=== PATIENT | female | born 2000 | race Two or more races ===

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

== ENCOUNTER 2020-08-20 07:00 | Outpatient (CLI) | payer OTHER | END 2020-08-20 23:59 | disposition home or self-care (01) | LOC: LAB.R 07:00 | PROVIDERS: ATTEND Family Medicine | DX: J06.9 Acute upper respiratory infection, unspecified (principal); Z20.828 Contact with and (suspected) exposure to other viral communicable diseases ==

== ENCOUNTER 2020-09-23 14:02 | Emergency (ER) | payer OTHER ==
--- NOTE | 2020-09-23 14:34 | ED Physician Documentation ---
PD HPI CHEST PAIN - Stated complaint Stated Complaint: CHEST PX - Chief complaint Chief Complaint: Cardiac - History obtained from History obtained from: Patient - History of Present Illness Timing - onset: How many weeks ago (1 week of some chest pain with breathing and movement, worse today. Has had dyspnea with activity for the past month, slowly improving. She was diagnosed with Covid a month ago and has been without symptoms for 3 weeks of active fever cough. However still with some dyspnea on exertion and right CP.) Timing - onset during: Light activity Timing - duration: Days, Weeks Timing - details: Gradual onset, Waxing and waning Quality: Aching, Sharp. No: Pressure, Tightness Location: Right chest Radiation: No: Jaw, Neck, Back Associated symptoms: Shortness of air. No: Diaphoresis, Nausea, Feeling faint / dizzy, General Weakness Similar symptoms before: Has not had sx before Recently seen: Not recently seen Review of Systems Constitutional: denies: Fever, Chills Nose: denies: Rhinorrhea / runny nose, Congestion Throat: denies: Sore throat Cardiac: reports: Chest pain / pressure. denies: Palpitations Respiratory: reports: Dyspnea. denies: Cough, Wheezing GI: denies: Nausea, Vomiting, Diarrhea PD PAST MEDICAL HISTORY - Past Medical History Past Medical History: No Cardiovascular: None Respiratory: None Psych: Depression - Past Surgical History Past Surgical History: No - Present Medications Home Medications: Ambulatory Orders Medication Instructions Recorded Confirmed Albuterol Sulf [Ventolin Hfa 2 puffs INH Q4HR PRN #1 inhaler 09/23/20 Inhaler] dexAMETHasone [Decadron] 4 mg PO DAILY #7 tablet 09/23/20 - Allergies Allergies/Adverse Reactions: Allergies Allergy/AdvReac Type Severity Reaction Status Date / Time shellfish derived Allergy Emesis Verified 09/23/20 14:05 - Social History Does the pt smoke?: No Smoking Status: Never smoker Does the pt drink ETOH?: No Does the pt have substance abuse?: No - Immunizations Immunizations are current?: Yes PD ED PE NORMAL - Vitals Vital signs reviewed: Yes - General General: Alert and oriented X 3, No acute distress, Well developed/nourished - HEENT HEENT: Ears normal, Pharynx benign - Neck Neck: Supple, no meningeal sign, No adenopathy - Cardiac Cardiac: RRR, No murmur - Respiratory Respiratory: Clear bilaterally, Other (Focal right parasternal chest wall tenderness at the cartilage. No rash or sores.) - Abdomen Abdomen: Soft, Non tender - Derm Derm: Normal color, Warm and dry, No rash - Extremities Extremities: No deformity, No tenderness to palpate, Normal ROM s pain, No calf tenderness / cord - Neuro Neuro: Alert and oriented X 3, No motor deficit, Normal speech Results - Vitals Vitals: Vital Signs - 24 hr 09/23/20 09/23/20 09/23/20 14:05 15:15 15:19 Temperature 36.7 C Heart Rate 67 58 L 80 Respiratory 16 17 16 Rate Blood Pressure 129/72 120/88 H O2 Saturation 100 100 Oxygen O2 Source Room air - EKG (time done) 14:08 Rate: Rate (enter#) (73) Rhythm: NSR [place]: Normal Intervals: Normal [place] QRS: Normal Ischemia: Normal ST segments. No: ST elevation c/w ischemia, ST depression - Rads (name of study) chest xray Radiology: Prelim report reviewed (no acute process), See rad report PD MEDICAL DECISION MAKING - ED course Complexity details: reviewed results (chext xray without pneumonia, PTX nor enlarged heart. ), considered differential, d/w patient Departure - Departure Disposition: 01 Home, Self Care Clinical Impression: Chest wall tenderness, Post viral RAD (reactive airway disease) Condition: Stable Record reviewed to determine appropriate education?: Yes Instructions: ED Chest Pain Costochondritis Follow-Up: Leanna Whitney PA-C [Primary Care Provider] - Prescriptions: Albuterol Sulf [Ventolin Hfa Inhaler] 2 puffs INH Q4HR PRN #1 inhaler PRN Reason: Shortness Of Air/Wheezing dexAMETHasone [Decadron] 4 mg PO DAILY #7 tablet Comments: Your chest x-ray and EKG appear normal. No signs of pneumonia or heart enlargement or inflammation. I presume you have inflammation around the lung and in the chest wall causing your pain and also some inflammation in the airways causing the fatigue and trouble breathing. Use the albuterol inhaler 2 puffs 4 times a day for the next week or so and then as needed. Also Decadron steroid daily for a week. To this add ibuprofen or naproxen if needed for pains. I would anticipate improvement over the next several days and resolved within a week regarding the main pain and much of the shortness of breath. Fatigue may last for a few more weeks. Forms: Activity restrictions
[2020-09-23] MEDS ORDERED: DEXAMETHASONE 10 MG/ML VIAL PO STA (14:56)
[2020-09-23] MEDS ORDERED: CHERRY SYRUP 10 ML UDC PO ONE (14:56)
[2020-09-23] MEDS ORDERED: IBUPROFEN 400 MG TABLET PO STA (14:56)
[2020-09-23] MEDS ORDERED: ALBUTEROL 1 PUFF INH STA (14:57)
[2020-09-23 15:16] VITALS: BP 120/88
--- NOTE | 2020-09-23 15:22 | XRAY Report ---
PROCEDURE: Chest 2 View X-Ray INDICATIONS: chest pain/dyspnea, post COVID TECHNIQUE: 2 view(s) of the chest. COMPARISON: None. FINDINGS: Surgical changes and devices: None. Lungs and pleura: No pleural effusions or pneumothorax. Lungs are clear. Mediastinum: Mediastinal contours are normal. Heart size is normal. Bones and chest wall: No suspicious bony abnormalities. Soft tissues appear unremarkable. IMPRESSION: No acute cardiopulmonary disease. Reviewed by: Pastora Ryan MD on 09/23/2020 3:20 PM PST Approved by: Pastora Ryan MD on 09/23/2020 3:20 PM PST Station ID: [id number]
== END 2020-09-23 15:57 | disposition home or self-care (01) ==
LOC: ED 14:02
DX: J45.998 Other asthma (principal); Z86.19 Personal history of other infectious and parasitic diseases; R07.89 Other chest pain
CPT/HCPCS: 71046; 93005; 94640; 99283; 99284; A9270

== ENCOUNTER 2022-01-07 10:51 | Emergency (ER) | payer MEDICAID, OTHER ==
[2022-01-07] MEDS ORDERED: DEXAMETHASONE 10 MG/ML VIAL IVP STA (11:23)
[2022-01-07] MEDS ORDERED: SODIUM CHLORIDE 0.9% 1,000 ML IV STA (11:23)
[2022-01-07] MEDS ORDERED: ONDANSETRON 4 MG/2 ML VIAL IVP STA (11:23)
--- NOTE | 2022-01-07 11:35 | ED Physician Documentation ---
History of Present Illness - Stated complaint Stated Complaint: FEVER - Chief complaint Chief Complaint: Fever - History obtained from History obtained from: Patient, Family - Additonal information Additional information: The patient comes to the emergency department with chief complaint of fever and sore throat for the last 3 days. The patient states that her temperatures have gotten as high as 103 at home. Her symptoms initially started with body aches and then progressed to fevers and chills, with vomiting yesterday. She states her tonsils feel enlarged and cause her to gag. She has not been able to drink much in the way of fluids because of the nausea and vomiting. No diarrhea. Patient states that she has had tonsillitis several times this year, but prior to this year, she did not have an issue with this. She states that she has not seen ENT for this. No difficulty breathing. No dysuria. No abdominal pain. The patient is vaccinated for COVID but not flu. She has not had any sick contacts that she knows of. She denies any other complaints at this time. Review of Systems Ten Systems: 10 systems reviewed and negative Constitutional: reports: Fever, Chills, Myalgias Eyes: reports: Reviewed and negative Ears: reports: Reviewed and negative Nose: reports: Reviewed and negative Throat: reports: Sore throat, Swollen tonsils Cardiac: reports: Reviewed and negative Respiratory: reports: Reviewed and negative. denies: Dyspnea, Cough GI: reports: Nausea, Vomiting. 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 : None HEENT: None Psych: Depression Musculoskeletal: None Derm: None Other Past Medical History: dextrocardia - Past Surgical History Past Surgical History: No - Present Medications Home Medications: Ambulatory Orders Medication Instructions Recorded Confirmed Amoxicillin 500 mg PO TID 7 Days #21 cap 01/07/22 Ondansetron Odt [Zofran] 4 mg TL Q6H PRN #10 tablet 01/07/22 predniSONE [Deltasone] 60 mg PO DAILY 3 Days #9 tablet 01/07/22 - Allergies Allergies/Adverse Reactions: Allergies Allergy/AdvReac Type Severity Reaction Status Date / Time shellfish derived Allergy Emesis Verified 01/07/22 10:53 - Social History Does the pt smoke?: No Smoking Status: Never smoker Does the pt drink ETOH?: No Does the pt have substance abuse?: No - Immunizations Immunizations are current?: Yes PD ED PE NORMAL - Vitals Vital signs reviewed: Yes - General General: Alert and oriented X 3, No acute distress, Well developed/nourished, Other (The patient appears somewhat ill but nontoxic) - HEENT HEENT: Atraumatic, PERRL, EOMI, Moist mucous membranes, Other - Cardiac Cardiac: RRR, No murmur - Respiratory Respiratory: Clear bilaterally - Abdomen Abdomen: Normal bowel sounds, Soft, Non tender, Non distended - Derm Derm: Warm and dry - Extremities Extremities: No deformity - Neuro Neuro: Alert and oriented X 3 - Psych Psych: Normal mood, Normal affect Results - Vitals Vitals: Vital Signs - 24 hr 01/07/22 01/07/22 01/07/22 10:54 11:11 13:16 Temperature 37.3 C 36.5 C Heart Rate 113 H 110 H 100 Respiratory 20 18 16 Rate Blood Pressure 118/73 111/79 108/67 O2 Saturation 99 100 98 Oxygen O2 Source Room air - Labs Labs: Laboratory Tests 01/07/22 01/07/22 01/07/22 11:20 11:20 11:34 Nasal Adenovirus (PCR) NOT DETECTED Nasal B. parapertussis DNA (PCR) NOT DETECTED Nasal Coronavir 229E PCR NOT DETECTED Nasal Coronavir HKU1 PCR NOT DETECTED Nasal Coronavir NL63 PCR NOT DETECTED Nasal Coronavir OC43 PCR NOT DETECTED Nasal Enterovir/Rhinovir PCR NOT DETECTED Nasal Influenza B PCR NOT DETECTED Nasal Influenza A PCR NOT DETECTED Nasal Parainfluen 1 PCR NOT DETECTED Nasal Parainfluen 2 PCR NOT DETECTED Nasal Parainfluen 3 PCR NOT DETECTED Nasal Parainfluen 4 PCR NOT DETECTED Nasal RSV (PCR) NOT DETECTED Nasal B.pertussis DNA PCR NOT DETECTED Nasal C.pneumoniae (PCR) NOT DETECTED [place]us Human Metapneumo PCR NOT DETECTED Nasal M.pneumoniae (PCR) NOT DETECTED Nasal SARS-CoV-2 (PCR) NOT DETECTED Infectious [place] Assay NEGATIVE Group A Strep Rapid Negative PD MEDICAL DECISION MAKING - ED course Complexity details: reviewed results, re-evaluated patient, considered differential, d/w patient ED course: The patient appeared to not feel well but was nontoxic. She was treated symptomatically with IV fluids, Zofran, and Decadron. She was worked up with strep test, mono test, and a respiratory PCR, all of which were negative. The patient clinically had an exudative pharyngitis/tonsillitis, as well as being significantly febrile. She was started on amoxicillin and was advised regarding symptomatic management at home. We have discussed the usual indications for return. Departure - Departure Disposition: Home, Self Care Clinical Impression: Acute tonsillitis Qualifiers: Pharyngitis/tonsillitis etiology: unspecified etiology Qualified Code(s): J03.90 - Acute tonsillitis, unspecified Condition: Stable Instructions: ED Tonsillitis Prescriptions: Amoxicillin 500 mg PO TID 7 Days #21 cap predniSONE [Deltasone] 60 mg PO DAILY 3 Days #9 tablet Ondansetron Odt [Zofran] 4 mg TL Q6H PRN #10 tablet PRN Reason: Nausea / Vomiting Comments: Your strep test is negative, as are your other tests for mono and a variety of other viruses. Most likely, you have a tonsillitis caused by other bacteria. As such, you have been started on antibiotics. You will need to follow-up with the ear nose throat specialist to determine whether your tonsils should be removed, or to see what else can be done to prevent the recurrent episodes. Please take the antibiotics as directed. Please take Tylenol 650 mg every 4 hours as needed for fever and ibuprofen 600 mg every 6 hours as needed for fever. These medications may be taken together, as they are unrelated. Discharge Date/Time: 01/07/22 13:16
[2022-01-07 11:47] LABS: INFECTIOUS MONONUCLEOSIS NEGATIVE (Negative)
[2022-01-07 12:00] LABS: RAPID STREP SCREEN Negative (Negative)
[2022-01-07 12:20] LABS: B. PARAPERTUSSIS- RESP PCR PAN NOT DETECTED; B. PERTUSSIS- RESP PCR PANEL NOT DETECTED; C. PNEUMONIAE- RESP PCR PANEL NOT DETECTED; CORONAVIRUS 229E-RESP PCR NOT DETECTED; CORONAVIRUS HKU1-RESP PCR NOT DETECTED; CORONAVIRUS NL63-RESP PCR NOT DETECTED; CORONAVIRUS OC43-RESP PCR NOT DETECTED; HUMAN METAPNEUMOVIRUS NOT DETECTED; INFLUENZA A- RESP PCR PANEL NOT DETECTED; INFLUENZA B - RESP PCR PANEL NOT DETECTED; M. PNEUMONIAE- RESP PCR PANEL NOT DETECTED; PARAINFLUENZA VIRUS 1 NOT DETECTED; PARAINFLUENZA VIRUS 2 NOT DETECTED; PARAINFLUENZA VIRUS 3 NOT DETECTED; PARAINFLUENZA VIRUS 4 NOT DETECTED; RHINOVIRUS/ENTEROVIRUS NOT DETECTED; RSV- RESP PCR PANEL NOT DETECTED; SARS-CoV-2 -RESP PCR PANEL NOT DETECTED
[2022-01-07] MEDS ORDERED: AMOXICILLIN 250 MG CAPSULE PO STA (12:25)
[2022-01-07] MEDS ORDERED: ACETAMINOPHEN 325 MG TABLET PO STA (12:34)
[2022-01-07] MEDS ORDERED: IBUPROFEN 600 MG TABLET PO STA (12:34)
[2022-01-07 13:17] VITALS: BP 108/67
== END 2022-01-07 13:16 | disposition home or self-care (01) ==
LOC: ED 10:51
DX: J03.90 Acute tonsillitis, unspecified (principal); Z20.822 Contact with and (suspected) exposure to COVID-19
CPT/HCPCS: 36415; 86308; 87070; 87430; 87633; 96374; 99282; 99283; A9270

== ENCOUNTER 2022-07-13 08:00 | Outpatient (CLI) | payer MEDICAID ==
[2022-07-13 17:02] LABS: BASOPHILS % (AUTO) 0.5 %; EOSINOPHILS # (AUTO) 0.2 10^3/uL (0.0-0.7); HCT - HEMATOCRIT 40.2 % (37.0-47.0); HGB - HEMOGLOBIN 13.3 g/dL (12.0-16.0); LYMPHOCYTES # (AUTO) 1.6 10^3/uL (1.5-3.5); LYMPHOCYTES % (AUTO) 20.8 %; MEAN CORPUSCULAR HGB CONC 33.1 g/dL (32.0-36.0); MEAN CORPUSCULAR VOLUME 87.6 fL (81.0-99.0); MEAN PLATELET VOLUME 9.7 fL (7.9-10.8); MONOCYTES # (AUTO) 0.8 10^3/uL (0.0-1.0); NEUTROPHILS # (AUTO) 5.1 10^3/uL (1.5-6.6); NEUTROPHILS % (AUTO) 65.6 %; PLT - PLATELET COUNT 194 10^3/uL (130-450); RED BLOOD COUNT 4.59 10^6/uL (4.20-5.40); WHITE BLOOD COUNT 7.7 x10^3/uL (4.8-10.8)
[2022-07-13 17:50] LABS: ALBUMIN 4.4 g/dL (3.2-5.5); ALBUMIN/GLOBULIN RATIO 1.5 (1.0-2.2); ALKALINE PHOSPHATASE 47 IU/L (42-121); ALT ALANINE AMINOTRANSFERASE 12 IU/L (10-60); AST ASPARTATE AMINOTRANSFERASE 14 IU/L (10-42); BILIRUBIN,TOTAL 0.7 mg/dL (0.2-1.0); BUN - BLOOD UREA NITROGEN 10 mg/dL (6-20); CALCIUM 9.1 mg/dL (8.5-10.3); CARBON DIOXIDE - CO2 27 mmol/L (21-32); CHLORIDE 102 mmol/L (101-111); CHOL/HDL RATIO 2.7 (<4.4); CHOLESTEROL 144 mg/dL; CREATININE 0.8 mg/dL (0.4-1.0); GFR - MDRD 90 (>89); GLUCOSE 101 mg/dL (70-100); HDL CHOLESTEROL 53 mg/dL; LDL CHOLESTEROL,CALCULATED 80 mg/dL; LDL/HDL RATIO 1.5 (<4.4); POTASSIUM 4.1 mmol/L (3.5-5.0); SODIUM 137 mmol/L (135-145); TOTAL PROTEIN 7.4 g/dL (6.7-8.2); TRIGLYCERIDES 55 mg/dL; VLDL CHOLESTEROL 11 mg/dL
== END 2022-07-13 23:59 | disposition home or self-care (01) ==
LOC: LAB 08:00
PROVIDERS: ATTEND Nurse Practitioner
DX: L70.0 Acne vulgaris (principal); Z79.899 Other long term (current) drug therapy
CPT/HCPCS: 36415; 80053; 80061; 83721; 84702; 85025

== ENCOUNTER 2022-08-13 16:47 | Outpatient (CLI) | payer MEDICAID ==
[2022-08-13 16:58] LABS: HCG UR QUAL NEGATIVE
== END 2022-08-13 16:48 | disposition home or self-care (01) ==
LOC: LAB 16:47
PROVIDERS: ATTEND Nurse Practitioner
DX: L70.0 Acne vulgaris (principal)
CPT/HCPCS: 81025

== ENCOUNTER 2022-08-16 16:42 | Outpatient (CLI) | payer MEDICAID ==
[2022-08-16 17:27] LABS: HCG UR QUAL NEGATIVE
== END 2022-08-16 16:43 | disposition home or self-care (01) ==
LOC: LAB 16:42
PROVIDERS: ATTEND Nurse Practitioner
DX: L70.0 Acne vulgaris (principal)
CPT/HCPCS: 81025

== ENCOUNTER 2022-10-11 16:54 | Outpatient (CLI) | payer MEDICAID ==
[2022-10-11 17:34] LABS: HCG UR QUAL NEGATIVE
== END 2022-10-11 16:55 | disposition home or self-care (01) ==
LOC: LAB 16:54
PROVIDERS: ATTEND Nurse Practitioner
DX: L70.0 Acne vulgaris (principal); Z79.899 Other long term (current) drug therapy
CPT/HCPCS: 81025

== ENCOUNTER 2022-11-08 16:48 | Outpatient (CLI) | payer BC, MEDICAID ==
[2022-11-08 17:45] LABS: HCG UR QUAL NEGATIVE
== END 2022-11-08 16:49 | disposition home or self-care (01) ==
LOC: LAB 16:48
PROVIDERS: ATTEND Nurse Practitioner
DX: Z79.899 Other long term (current) drug therapy (principal)
CPT/HCPCS: 81025

== ENCOUNTER 2022-12-14 16:38 | Outpatient (CLI) | payer BC, MEDICAID ==
[2022-12-14 16:58] LABS: HCG UR QUAL NEGATIVE
== END 2022-12-14 16:39 | disposition home or self-care (01) ==
LOC: LAB 16:38
PROVIDERS: ATTEND Nurse Practitioner
DX: Z79.899 Other long term (current) drug therapy (principal)
CPT/HCPCS: 81025

== ENCOUNTER 2022-12-21 16:41 | Outpatient (CLI) | payer BC, MEDICAID | END 2022-12-21 16:42 | disposition home or self-care (01) | LOC: LAB 16:41 | PROVIDERS: ATTEND Nurse Practitioner | DX: Z79.899 Other long term (current) drug therapy (principal) | CPT/HCPCS: 36415; 84702 ==

== ENCOUNTER 2023-01-17 16:49 | Outpatient (CLI) | payer BC, MEDICAID ==
[2023-01-17 17:24] LABS: HCG UR QUAL NEGATIVE
== END 2023-01-17 16:50 | disposition home or self-care (01) ==
LOC: LAB 16:49
PROVIDERS: ATTEND Nurse Practitioner
DX: Z79.899 Other long term (current) drug therapy (principal)
CPT/HCPCS: 81025

== ENCOUNTER 2023-02-02 07:49 | Outpatient (CLI) | payer BC, MEDICAID ==
[2023-02-02 08:02] LABS: BASOPHILS # (AUTO) 0.1 10^3/uL (0.0-0.1); BASOPHILS % (AUTO) 0.9 %; EOSINOPHILS # (AUTO) 0.3 10^3/uL (0.0-0.7); EOSINOPHILS % (AUTO) 4.8 %; HCT - HEMATOCRIT 39.6 % (37.0-47.0); HGB - HEMOGLOBIN 13.5 g/dL (12.0-16.0); LYMPHOCYTES # (AUTO) 1.6 10^3/uL (1.5-3.5); LYMPHOCYTES % (AUTO) 28.2 %; MEAN CORPUSCULAR HEMOGLOBIN 29.5 pg (27.0-31.0); MEAN CORPUSCULAR HGB CONC 34.1 g/dL (32.0-36.0); MEAN CORPUSCULAR VOLUME 86.5 fL (81.0-99.0); MEAN PLATELET VOLUME 9.7 fL (7.9-10.8); MONOCYTES # (AUTO) 0.5 10^3/uL (0.0-1.0); MONOCYTES % (AUTO) 8.5 %; NEUTROPHILS # (AUTO) 3.2 10^3/uL (1.5-6.6); NEUTROPHILS % (AUTO) 57.4 %; PLT - PLATELET COUNT 211 10^3/uL (130-450); RED BLOOD COUNT 4.58 10^6/uL (4.20-5.40); RED CELL DISTRIBUTION WIDTH 11.8 % (12.0-15.0); WHITE BLOOD COUNT 5.6 x10^3/uL (4.8-10.8)
[2023-02-02 08:13] LABS: ALBUMIN 4.1 g/dL (3.2-5.5); ALBUMIN/GLOBULIN RATIO 1.3 (1.0-2.2); BILIRUBIN,TOTAL 0.5 mg/dL (0.2-1.0); CREATININE 0.6 mg/dL (0.4-1.0); POTASSIUM 3.7 mmol/L (3.5-5.0); TOTAL PROTEIN 7.3 g/dL (6.7-8.2)
[2023-02-02 08:31] LABS: THYROID STIMULATING HORMONE 3.88 uIU/mL (0.34-5.60)
[2023-02-02 09:55] LABS: RHEUMATOID FACTOR NEGATIVE (Negative)
[2023-02-03 08:10] LABS: HIV SCREEN 4TH GENERATION Non Reactive (Non Reactive)
--- NOTE | 2023-02-03 12:11 | XRAY Report ---
PROCEDURE: Chest 2 View X-Ray INDICATIONS: FEVER TECHNIQUE: 2 views of the chest were acquired. COMPARISON: 09/23/2020 FINDINGS: Surgical changes and devices: None. Lungs and pleura: No pleural effusions or pneumothorax. Lungs are clear. Mediastinum: Mediastinal contours appear normal. Heart size is normal. Bones and chest wall: No suspicious bony lesions. Overlying soft tissues appear unremarkable. IMPRESSION: No acute cardiopulmonary process. Reviewed by: Ian Jackson MD on 02/03/2023 12:09 PM PDT Approved by: Ian Jackson MD on 02/03/2023 12:09 PM PDT Station ID: [id number]
[2023-02-04 18:07] LABS: ANTINUCLEAR ANTIBODIES IFA Negative (.)
== END 2023-02-02 07:50 | disposition home or self-care (01) ==
LOC: LAB 07:49
PROVIDERS: ATTEND Physician Assistant
DX: R50.9 Fever, unspecified (principal)
CPT/HCPCS: 36415; 80053; 84443; 85025; 85651; 86038; 86430; 87389

== ENCOUNTER 2023-02-16 16:41 | Outpatient (CLI) | payer BC, MEDICAID ==
[2023-02-16 17:44] LABS: HCG UR QUAL NEGATIVE
== END 2023-02-16 16:42 | disposition home or self-care (01) ==
LOC: LAB 16:41
PROVIDERS: ATTEND Nurse Practitioner
DX: Z79.899 Other long term (current) drug therapy (principal)
CPT/HCPCS: 81025

== ENCOUNTER 2023-03-21 16:44 | Outpatient (CLI) | payer BC, MEDICAID ==
[2023-03-21 17:09] LABS: HCG UR QUAL NEGATIVE
== END 2023-03-21 16:45 | disposition home or self-care (01) ==
LOC: LAB 16:44
PROVIDERS: ATTEND Nurse Practitioner
DX: Z79.899 Other long term (current) drug therapy (principal)
CPT/HCPCS: 81025

== ENCOUNTER 2023-03-31 11:09 | Outpatient (CLI) | payer BC, MEDICAID ==
[2023-03-31 11:22] LABS: HCG UR QUAL NEGATIVE
== END 2023-03-31 11:10 | disposition home or self-care (01) ==
LOC: LAB 11:09
PROVIDERS: ATTEND Nurse Practitioner
DX: Z79.899 Other long term (current) drug therapy (principal)
CPT/HCPCS: 81025

== ENCOUNTER 2023-05-02 16:42 | Outpatient (CLI) | payer BC, MEDICAID ==
[2023-05-02 17:18] LABS: HCG UR QUAL NEGATIVE
== END 2023-05-02 16:43 | disposition home or self-care (01) ==
LOC: LAB 16:42
PROVIDERS: ATTEND Nurse Practitioner
DX: L70.0 Acne vulgaris (principal)
CPT/HCPCS: 81025

== ENCOUNTER 2023-05-10 16:51 | Outpatient (CLI) | payer BC, MEDICAID ==
[2023-05-10 17:12] LABS: BASOPHILS % (AUTO) 0.5 %; EOSINOPHILS # (AUTO) 0.2 10^3/uL (0.0-0.7); EOSINOPHILS % (AUTO) 1.9 %; HCT - HEMATOCRIT 40.3 % (37.0-47.0); HGB - HEMOGLOBIN 13.7 g/dL (12.0-16.0); LYMPHOCYTES # (AUTO) 2.3 10^3/uL (1.5-3.5); LYMPHOCYTES % (AUTO) 29.3 %; MEAN CORPUSCULAR HEMOGLOBIN 29.5 pg (27.0-31.0); MEAN CORPUSCULAR VOLUME 86.9 fL (81.0-99.0); MEAN PLATELET VOLUME 9.9 fL (7.9-10.8); MONOCYTES # (AUTO) 0.6 10^3/uL (0.0-1.0); MONOCYTES % (AUTO) 7.8 %; NEUTROPHILS # (AUTO) 4.7 10^3/uL (1.5-6.6); NEUTROPHILS % (AUTO) 60.4 %; PLT - PLATELET COUNT 192 10^3/uL (130-450); RED BLOOD COUNT 4.64 10^6/uL (4.20-5.40); RED CELL DISTRIBUTION WIDTH 11.7 % (12.0-15.0); WHITE BLOOD COUNT 7.8 x10^3/uL (4.8-10.8)
[2023-05-10 17:28] LABS: ALBUMIN 4.5 g/dL (3.2-5.5); ALKALINE PHOSPHATASE 48 IU/L (42-121); ALT ALANINE AMINOTRANSFERASE 10 IU/L (10-60); AST ASPARTATE AMINOTRANSFERASE 13 IU/L (10-42); BILIRUBIN,DIRECT < 0.10 mg/dL (0.03-0.18); BILIRUBIN,TOTAL 0.3 mg/dL (0.2-1.0); CHOLESTEROL 136 mg/dL; HDL CHOLESTEROL 45 mg/dL; LDL CHOLESTEROL,CALCULATED 73 mg/dL; LDL CHOLESTEROL,DIRECT 87 mg/dL (75-193); LDL/HDL RATIO 1.6 (<4.4); TOTAL PROTEIN 7.4 g/dL (6.4-8.9); TRIGLYCERIDES 89 mg/dL (48-352); VLDL CHOLESTEROL 18 mg/dL
== END 2023-05-10 16:52 | disposition home or self-care (01) ==
LOC: LAB 16:51
PROVIDERS: ATTEND Nurse Practitioner
DX: L70.0 Acne vulgaris (principal)
CPT/HCPCS: 36415; 80061; 80076; 83721; 84702; 85025

== ENCOUNTER 2023-06-03 16:47 | Outpatient (CLI) | payer BC, MEDICAID ==
[2023-06-03 19:27] LABS: HCG UR QUAL NEGATIVE
== END 2023-06-03 16:48 | disposition home or self-care (01) ==
LOC: LAB 16:47
PROVIDERS: ATTEND Nurse Practitioner
DX: Z79.899 Other long term (current) drug therapy (principal)
CPT/HCPCS: 81025

== ENCOUNTER 2023-06-13 12:11 | Outpatient (CLI) | payer BC, MEDICAID ==
[2023-06-13 12:24] LABS: BASOPHILS % (AUTO) 0.2 %; EOSINOPHILS % (AUTO) 0.2 %; HCT - HEMATOCRIT 40.4 % (37.0-47.0); HGB - HEMOGLOBIN 13.8 g/dL (12.0-16.0); LYMPHOCYTES # (AUTO) 1.8 10^3/uL (1.5-3.5); LYMPHOCYTES % (AUTO) 13.6 %; MEAN CORPUSCULAR HEMOGLOBIN 29.9 pg (27.0-31.0); MEAN CORPUSCULAR HGB CONC 34.2 g/dL (32.0-36.0); MEAN CORPUSCULAR VOLUME 87.4 fL (81.0-99.0); MEAN PLATELET VOLUME 10.1 fL (7.9-10.8); MONOCYTES # (AUTO) 0.9 10^3/uL (0.0-1.0); MONOCYTES % (AUTO) 6.8 %; NEUTROPHILS # (AUTO) 10.6 10^3/uL (1.5-6.6); NEUTROPHILS % (AUTO) 78.8 %; PLT - PLATELET COUNT 241 10^3/uL (130-450); RED BLOOD COUNT 4.62 10^6/uL (4.20-5.40); RED CELL DISTRIBUTION WIDTH 11.8 % (12.0-15.0); WHITE BLOOD COUNT 13.5 x10^3/uL (4.8-10.8)
[2023-06-13 12:39] LABS: ALBUMIN 4.5 g/dL (3.2-5.5); ALBUMIN/GLOBULIN RATIO 1.6 (1.0-2.2); ALKALINE PHOSPHATASE 55 IU/L (42-121); ALT ALANINE AMINOTRANSFERASE 11 IU/L (10-60); AST ASPARTATE AMINOTRANSFERASE 16 IU/L (10-42); BILIRUBIN,TOTAL 0.2 mg/dL (0.2-1.0); BUN - BLOOD UREA NITROGEN 7 mg/dL (6-20); CALCIUM 9.3 mg/dL (8.5-10.3); CARBON DIOXIDE - CO2 25 mmol/L (21-32); CHLORIDE 107 mmol/L (101-111); CHOL/HDL RATIO 2.8 (<4.4); CHOLESTEROL 131 mg/dL; CREATININE 0.7 mg/dL (0.6-1.3); GFR - MDRD 104 (>89); GLUCOSE 97 mg/dL (74-104); HDL CHOLESTEROL 46 mg/dL; LDL CHOLESTEROL,CALCULATED 60 mg/dL; LDL/HDL RATIO 1.3 (<4.4); POTASSIUM 3.7 mmol/L (3.5-4.5); SODIUM 137 mmol/L (135-145); TOTAL PROTEIN 7.4 g/dL (6.4-8.9); TRIGLYCERIDES 127 mg/dL (48-352); VLDL CHOLESTEROL 25 mg/dL
== END 2023-06-13 12:12 | disposition home or self-care (01) ==
LOC: LAB 12:11
PROVIDERS: ATTEND Nurse Practitioner
DX: Z79.899 Other long term (current) drug therapy (principal)
CPT/HCPCS: 36415; 80053; 80061; 83721; 84702; 85025

== ENCOUNTER 2023-07-11 16:24 | Outpatient (CLI) | payer BC, MEDICAID ==
[2023-07-11 16:39] LABS: HCG UR QUAL NEGATIVE
== END 2023-07-11 16:25 | disposition home or self-care (01) ==
LOC: LAB 16:24
PROVIDERS: ATTEND Nurse Practitioner
DX: Z79.899 Other long term (current) drug therapy (principal); L70.0 Acne vulgaris; B00.1 Herpesviral vesicular dermatitis
CPT/HCPCS: 81025

== ENCOUNTER 2024-06-07 20:57 | Emergency (ER) | payer BC, MEDICAID ==
[2024-06-07 21:06] VITALS: BP 119/86; O2SAT 100
--- NOTE | 2024-06-07 21:18 | ED Physician Documentation ---
History of Present Illness - Stated complaint Stated Complaint: L EAR PIERCING BLEEDING - Chief complaint Chief Complaint: Heent - History obtained from History obtained from: Patient - Additonal information Additional information: A earring in the top of the left ear got caught on a door tonight and now the part that removes got pulled into the pinna and cannot be accessed with some bleeding. 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 : None HEENT: None Psych: Depression Musculoskeletal: None Derm: None - Past Surgical History Past Surgical History: No - Present Medications Home Medications: Ambulatory Orders Medication Instructions Recorded Confirmed Amoxicillin 500 mg PO TID 7 Days #21 cap 01/07/22 Ondansetron Odt [Zofran] 4 mg TL Q6H PRN #10 tablet 01/07/22 predniSONE [Deltasone] 60 mg PO DAILY 3 Days #9 tablet 01/07/22 - Allergies Allergies/Adverse Reactions: Allergies Allergy/AdvReac Type Severity Reaction Status Date / Time shellfish derived Allergy Emesis Verified 06/07/24 21:03 - Social History Does the pt smoke?: No Smoking Status: Never smoker Does the pt drink ETOH?: No Does the pt have substance abuse?: No - Immunizations Immunizations are current?: Yes - POLST Patient has POLST: No PD ED PE NORMAL - Vitals Vital signs reviewed: Yes - General General: Alert and oriented X 3, No acute distress - HEENT HEENT: Other (There is an embedded earring in the left pinna with some bleeding) Results - Vitals Vitals: Vital Signs - 24 hr 06/07/24 21:03 Temperature 36.8 C Heart Rate 68 Respiratory 16 Rate Blood Pressure 119/86 H O2 Saturation 100 Oxygen O2 Source Room air PD Medical Decision Making - ED course ED course: The area was locally infiltrated with lidocaine without epinephrine and then I was able to push the earring forward to access the part that it removal and unscrew that and remove the earring in the entirety. Departure - Departure Disposition: 01 Home, Self Care Clinical Impression: Embedded earring of left ear Condition: Good Record reviewed to determine appropriate education?: Yes Comments: As discussed, I would leave the current stud out probably until Tuesday at which point it could probably be gingerly replaced if you want to keep the piercing as is. Otherwise I think is fine to wash with soap and water and you can apply a little [id number] antibacterial ointment. Return for new or worsening symptoms.
== END 2024-06-07 21:25 | disposition home or self-care (01) ==
LOC: ED 20:57
DX: T16.2XXA Foreign body in left ear, initial encounter (principal); W45.8XXA Other foreign body or object entering through skin, initial encounter
CPT/HCPCS: 99282; 99283